=== PATIENT | male | born 1930 | race Two or more races ===

== ENCOUNTER 2017-02-01 12:17 | Inpatient (IN) | payer OTHER ==
[~2017-02-01] VITALS: Ht 167.6 cm; Wt 59.1 kg
[2017-02-01 13:19] LABS: BASOPHIL % 0.5 % (0-2); PLATELET COUNT 203 x10^3mcL (130-400); RED CELL DISTRIBUTION WIDTH 14.3 % (11.5-14.5)
[2017-02-01 13:30] LABS: CALCIUM 8.8 mg/dL (8.5-10.1); CARBON DIOXIDE 31.8 mmol/L (21-32); CHLORIDE SERUM 107 mmol/L (98-107); CREATININE SERUM 0.7 mg/dL (0.7-1.3); GLUCOSE SERUM 117 mg/dL (74-106); POTASSIUM SERUM 4.1 mmol/L (3.5-5.1); SODIUM SERUM 143 mmol/L (136-145)
[2017-02-01 13:35] LABS: ALKALINE PHOSPHATASE 60 U/L (46-116); ALT/SGPT 40 U/L (16-63); AST/SGOT 28 U/L (15-37); BILIRUBIN TOTAL 0.33 mg/dL (0.20-1.00)
[2017-02-01 13:38] LABS: ALBUMIN 3.3 g/dL (3.4-5.0)
[2017-02-01] MEDS ORDERED: NEU300 (15:45)
[2017-02-01] MEDS ORDERED: SIMVASTATIN40 M1 PO (15:46)
[2017-02-01 16:32] LABS: CHOLESTEROL/HDL RATIO 3.3; MAGNESIUM 2.1 mg/dL (1.8-2.4); PHOSPHOROUS 3.6 mg/dL (2.5-4.9)
[2017-02-01 17:02] VITALS: BP 136/53
[2017-02-01 17:37] LABS: T3 TOTAL 1.08 ng/mL
[2017-02-01 18:50] LABS: FREE T4 0.94 ng/dL (0.76-1.46); FREE THYROXINE INDEX 2.7 ug/dL (1.4-4.5); T4(THYROXINE) 9.1 ug/dL (4.7-13.3)
[2017-02-01 22:19] VITALS: BP 125/52
[2017-02-02 06:01] VITALS: BP 105/58
[2017-02-02 06:44] LABS: BASOPHIL % 0.6 % (0-2); PLATELET COUNT 186 x10^3mcL (130-400); RED CELL DISTRIBUTION WIDTH 13.8 % (11.5-14.5)
[2017-02-02 07:09] LABS: CALCIUM 8.8 mg/dL (8.5-10.1); CARBON DIOXIDE 29.8 mmol/L (21-32); CHLORIDE SERUM 108 mmol/L (98-107); CREATININE SERUM 0.6 mg/dL (0.7-1.3); GLUCOSE SERUM 85 mg/dL (74-106); MAGNESIUM 2.2 mg/dL (1.8-2.4); POTASSIUM SERUM 3.6 mmol/L (3.5-5.1); SODIUM SERUM 143 mmol/L (136-145)
[2017-02-02 10:21] VITALS: BP 98/46
[2017-02-02 12:35] LABS: microscopic required? NO
[2017-02-02 13:00] LABS: urine erythrocyte NEGATIVE (NEGATIVE)
[2017-02-02 15:06] VITALS: BP 101/44
[2017-02-02 18:09] VITALS: BP 100/46
[2017-02-02 21:19] VITALS: BP 114/58
[2017-02-03 05:39] VITALS: BP 110/52
[2017-02-03 06:30] LABS: BASOPHIL % 0.4 % (0-2); PLATELET COUNT 180 x10^3mcL (130-400); RED CELL DISTRIBUTION WIDTH 13.8 % (11.5-14.5)
[2017-02-03 06:31] LABS: CALCIUM 8.5 mg/dL (8.5-10.1); CARBON DIOXIDE 25.9 mmol/L (21-32); CHLORIDE SERUM 109 mmol/L (98-107); CREATININE SERUM 0.6 mg/dL (0.7-1.3); GLUCOSE SERUM 83 mg/dL (74-106); MAGNESIUM 2.1 mg/dL (1.8-2.4); POTASSIUM SERUM 3.6 mmol/L (3.5-5.1); SODIUM SERUM 145 mmol/L (136-145)
[2017-02-03 10:13] VITALS: BP 119/47
[2017-02-03] MEDS ORDERED: PRI20 PO (11:38)
[2017-02-03] MEDS ORDERED: ZOFRAN ODT4 MG SL (11:47)
[2017-02-03 12:09] VITALS: BP 119/47
== END 2017-02-03 14:23 | disposition home or self-care (01) | DRG 392 ==
LOC: ED 12:17 → DU 15:23
PROVIDERS: Emergency Medicine; ADMIT Family Medicine
DX: K21.9 Gastro-esophageal reflux disease without esophagitis (principal); E44.0 Moderate protein-calorie malnutrition; E78.1 Pure hyperglyceridemia; Z86.73 Personal history of transient ischemic attack (TIA), and cerebral infarction without residual deficits; Z68.21 Body mass index [BMI] 21.0-21.9, adult
CPT/HCPCS: 83880; 84439; 97110-GP; J7030; Q0092; Q9967